=== PATIENT | female | born 1975 | race Caucasian/White ===

== ENCOUNTER 2018-09-13 19:49 | Inpatient (IN) | payer BC, OTHER ==
[~2018-09-13] VITALS: Ht 162.6 cm; Wt 48.1 kg
--- NOTE | 2018-09-14 01:40 | NUR ---
Pre-admission Met with a 43 year old female to assess for admission to [facility] for medically supervised withdrawal from ETOH. Pt arrived via transport from [facility] after flight from [place]. Pt is awake, alert, and oriented. Pt is clean, neat, anxious, tremulous, fearful, fidgety, and poor concentration. Pt vitals were rendered and BP noted as 163/107. Pt denies medical history. Pt meets criteria for admission. Pt made aware of rules and requirements for admission. Pt verbalizes understanding and agrees to the terms. Pt will be admitted to room 315. Will continue assessment when pt on unit.
[2018-09-14] MEDS ORDERED: LORA1TAB PO (02:09)
[2018-09-14] MEDS ORDERED: SERT25TA PO (02:09)
[2018-09-14] MEDS ORDERED: HYDROXYZINE PAMOATE 25 MG CAPSULE PO PRN (02:15)
[2018-09-14] MEDS ORDERED: THIAMINE HCL 200 MG/2 ML VIAL IM ONE (02:15)
[2018-09-14] MEDS ORDERED: LOPERAMIDE HCL 2 MG CAPSULE PO PRN ×2 (02:15)
[2018-09-14] MEDS ORDERED: ACETAMINOPHEN 325 MG TABLET PO PRN (02:15)
[2018-09-14] MEDS ORDERED: LORAZEPAM 1 MG TABLET PO PRN ×2 (02:15)
[2018-09-14] MEDS ORDERED: MAG HYDROX/AL HYDROX/SIMETH 30 ML LIQUID UDC PO PRN (02:15)
[2018-09-14] MEDS ORDERED: MAGNESIUM HYDROXIDE 30 ML LIQUID UDC PO PRN (02:15)
[2018-09-14] MEDS ORDERED: DICYCLOMINE HCL 20 MG TABLET PO PRN (02:15)
[2018-09-14] MEDS ORDERED: ONDANSETRON ODT 4 MG TAB.RAPDIS SL PRN (02:15)
[2018-09-14] MEDS ORDERED: LORAZEPAM 2 MG/1 ML VIAL IM PRN (02:15)
[2018-09-14] MEDS ORDERED: diphenhydrAMINE 50 MG CAPSULE PO PRN (02:15)
[2018-09-14] MEDS ORDERED: MIRALAX 17 GM POWD.PACK PO PRN (02:15)
[2018-09-14] MEDS ORDERED: ONDANSETRON 4 MG/2 ML VIAL IM PRN (02:15)
[2018-09-14 02:42] LABS: ALANINE AMINOTRANSFERASE 62 U/L (14-59); ALKALINE PHOSPHATASE 78 U/L (50-136); AMYLASE 72 U/L (25-115); ASPARTATE AMINOTRANSFERASE 72 U/L (15-37); BILIRUBIN,TOTAL 1.1 mg/dL (0.2-1.0); CARBON DIOXIDE 25 mmol/L (21-32); CHLORIDE 99 mmol/L (98-107); CREATININE 0.6 mg/dL (0.6-1.3); GLUCOSE 91 mg/dL (74-106); LIPASE 347 U/L (73-393); MAGNESIUM 1.7 mg/dL (1.8-2.4); POTASSIUM 3.3 mmol/L (3.5-5.1); TOTAL PROTEIN, SERUM 7.7 g/dL (6.4-8.2); UREA NITROGEN, BLOOD 12 mg/dL (7-18)
[2018-09-14 02:44] LABS: BASOPHILS % (AUTO) 1.2 % (0.0-2.0); EOSINOPHILS # (AUTO) 0.1 K/uL (0.0-0.7); EOSINOPHILS % (AUTO) 2.6 % (0.0-7.0); HEMOGLOBIN 13.8 g/dL (10.9-14.3); LYMPHOCYTES % (AUTO) 30.1 % (20.5-51.5); MEAN CORPUSCULAR HEMOGLOBIN 33.7 uug (24.7-32.8); MEAN CORPUSCULAR HGB CONC 35 g/dL (32.3-35.6); MEAN CORPUSCULAR VOLUME 95.3 fL (75.5-95.3); MONOCYTES # (AUTO) 0.5 K/uL (2.0-10.0); MONOCYTES % (AUTO) 15.7 % (0.0-11.0); NEUTROPHILS # (AUTO) 1.7 K/uL (1.8-8.9); NEUTROPHILS % (AUTO) 50.4 % (38.5-71.5); PLATELET COUNT (AUTO) 152 K/uL (179-408); RED BLOOD CELL COUNT(AUTO) 4.09 MIL/uL (3.63-4.92); WHITE BLOOD COUNT (AUTO) 3.3 K/uL (3.8-11.8)
[2018-09-14 02:46] LABS: ETHANOL < 3 MG/DL (0-0)
[2018-09-14] MEDS ORDERED: POTASSIUM CHLORIDE 20 MEQ TAB.PRT.SR PO ONE (03:00)
[2018-09-14] MEDS ORDERED: MAGNESIUM OXIDE 400 MG TABLET PO ONE (03:00)
--- NOTE | 2018-09-14 03:00 | NUR ---
Admission Note Received a 43 year old female patient to [facility] for medically supervised withdrawal from ETOH (Vodka). Pt was escorted to unit @ 0218 by female [employer]. Pt is awake, alert, oriented x 4, and ambulates with steady gait. Pt is anxious, tremulous, fearful, fidgety, and poor concentration. Pt states last consumption of ETOH was Sunday (09/11/18). Pt was cooperative with body and skin check noted to be intact. Pt is 52 and weighs 106 per standing scale. Pt was oriented to room, equipment, and unit. Verbalized understanding. Patient reports her substance use as: ETOH (Vodka): pt stated had first drinks at age 26 and drank socially. About 4 years ago her adoptive father passed s/p [place] and her left her within a 6 week period. Pt states her consumption increased to 750 ml nightly. Stated she used it to sleep. Last drink was 09/11/18. Pt denies any other substance use. Pt denies history of seizures, withdrawal induced delirium, or cardiac complications. However, pt reports new onset hypertension with ETOH withdrawal noted on 09/11/18. Denies suicidal ideation or attempts. Denies history of seizures or falls. Pt states she has had blackouts. Pt reports past medical history of anxiety and depression with prescribed Ativan and Zoloft. Pt has had one surgery (right knee) s/p ski injury in 2001. Pt states she and her 6 siblings are all adopted. Pt has a PCP (Fam Perez) and a therapist (Amber Alston) both located in [place]. Pt reports she has never attempted to get sober. States, I am getting to a point where Im going to start losing things. I need to learn how to be social. Pt states drinking escalated after father passed and left. Needed ETOH to cope and to sleep. Pt aware that triggers are friends drinking, special events, and inability to sleep. Pt motivated to participate in recovery and to learn about how to deal with issues. Vital signs rendered and noted as BP 163/107, HR 76, RR 16, T 98.2, and 100 % O2 Sat on RA. Breathing is even and unlabored, lungs clear, bowel sounds active x 4. Pt follows regular healthy diet. No known allergies. Full code. Denies history of smoking. Educated pt about plan of care including detox, group therapy, individual therapy, discharge planning and pt verbalizes understanding. Admission CIWA 15. All information relayed to MD and orders received. Labs ordered and rendered. Will continue to monitor pt. Addendum: 09/16/18 at 0708 by CHAVA HILL RN Clarification of Substance Use History: Patient had stated that she takes prescribed Ativan. However, she later clarified that she only took one dose. She did not continue taking it because she "didn't like it."
[2018-09-14 03:01] LABS: BASOPHILS % (MANUAL) 1 % (0-2); EOSINOPHILS % (MANUAL) 3 % (0-8); LYMPHOCYTES % (MANUAL) 30 % (20-40); MONOCYTES % (MANUAL) 15 % (2-10); NEUTROPHILS % (MANUAL) 51 % (42-75)
[2018-09-14 04:00] VITALS: BP 166/102
--- NOTE | 2018-09-14 04:00 | NUR ---
CIWA 14 Pt anxious, agitated, tremors, difficulty sitting still, fearful
[2018-09-14] MEDS: CLONIDINE HCL 0.1 MG TABLET PO PRN (04:04)
--- NOTE | 2018-09-14 04:04 | NUR ---
PRN Benadryl,Vistaril, Clonidine, Ativan Pt with anxiety, agitation, restless, unable to sleep, elevated BP 166/102. PRN medications given per order. Will monitor effect.
--- NOTE | 2018-09-14 05:04 | NUR ---
Reassess PRN Benadryl, Vistaril, Clonidine, Ativan Medication effective. Pt in bed with eyes closed and resting. Respirations even and unlabored. Refused BP recheck. Will continue to monitor.
[2018-09-14 06:00] LABS: *AMPHETAMINE, URINE NEGATIVE (NEGATIVE); *BARBITURATE, URINE NEGATIVE (NEGATIVE); *CANNABINOID, URINE NEGATIVE (NEGATIVE); *COCCAINE, URINE NEGATIVE (NEGATIVE); *OPIATE, URINE NEGATIVE (NEGATIVE); *PHENCYCLIDINE SCREEN,URINE NEGATIVE (NEGATIVE)
[2018-09-14 06:14] LABS: THYROID STIMULATING HORMONE 6.272 mIU/mL (0.358-3.740)
[2018-09-14 06:21] LABS: *URINE HCG, QUAL NEGATIVE (NEGATIVE)
--- NOTE | 2018-09-14 07:04 | NUR ---
End of Shift Endorsing 43 year old female admitted 09/14/18 to [facility] for medically supervised withdrawal from ETOH. 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 Last CIWA 15 @ 0400. Pt received Potassium and Magnesium PO related to low values. Pt resting in bed with eyes closed. Bed low, side rails up x 2, and call mehta in reach.
--- NOTE | 2018-09-14 07:15 | NUR ---
Start of Shift note Pt. is a 43 y/o female admitted for the medically managed withdrawal from ETOH. Pt. was placed on PRN medication and is awaiting further assessment by MD. Endorsed from previous shift pt. presented with anxiety, agitation, and nausea. Received pt. in room. Pt. laying in bed with eyes closed. No signs of distress noted. Safety measures in place. Will continue to monitor pt.s behavior for safety.
[2018-09-14 08:00] VITALS: BP 113/81
--- NOTE | 2018-09-14 08:00 | NUR ---
CIWA Assessment CIWA of 11 at this time. Pt. in room and presents with anxiety, tremors, diaphoresis, and a flat affect. Will give medications as ordered. Will continue to monitor pt.'s behavior for safety.
[2018-09-14] MEDS: FOLIC ACID 1 MG TABLET PO SCH (09:55)
[2018-09-14] MEDS: MULTIVITAMINS,THERAPEUTIC TABLET PO SCH (09:55)
[2018-09-14] MEDS: THIAMINE HCL 100 MG TABLET PO SCH (09:55)
[2018-09-14] MEDS ORDERED: 5 DAY PHENOBARBITAL TAPER -SERENITY PROTOCOL PO PRN (10:15)
[2018-09-14 12:00] VITALS: BP 134/90
--- NOTE | 2018-09-14 12:00 | NUR ---
CIWA Assessment CIWA of 11 at this time. Pt. in room and presents with anxiety, tremors, diaphoresis, and a flat affect. Pt. compliant with medication regiment and treatment plan. Will continue to monitor pt.'s behavior for safety.
[2018-09-14] MEDS: PHENOBARBITAL 60 MG TABLET PO SCH ×2 (12:05→21:45)
[2018-09-14 16:00] VITALS: BP 137/98
--- NOTE | 2018-09-14 19:03 | NUR ---
End Of Shift Pt. is a 43 y/o female admitted for the medically managed withdrawal from ETOH. Pt. was placed on a Phenobarbital taper to manage her withdrawal symptoms. Throughout shift pt. presented with anxiety, tremors, and agitation. Pt. compliant with treatment plan and medication regiment. Safety measures in place. Will endorse pt.s care to oncoming shift.
--- NOTE | 2018-09-14 19:30 | NUR ---
Start of Shift Received 43 year old female patient admitted 09/14/18 to [facility] for medically supervised withdrawal from ETOH. Pt started on a 5 day Phenobarbital taper today 09/14/18 which she is tolerating well. Last CIWA 10 @1600. Pt did not receive any PRN medications during day shift. Pt anxious, flat affect, preoccupied and easily distracted. Pt up ad tali with steady gait and participating in activities. Pt had questions about groups, questions answered and given a schedule of activities. Bed low, padded side rails up x 2, call mehta in reach. Will continue to monitor.
--- NOTE | 2018-09-14 20:00 | NUR ---
CIWA 10 Pt anxious, agitated, and restless.
[2018-09-14 20:05] VITALS: BP 123/90
[2018-09-14] MEDS: TRAZODONE 50 MG TABLET PO PRN (21:45)
--- NOTE | 2018-09-14 21:45 | NUR ---
PRN Trazodone Pt requested something to help her sleep. PRN Trazodone given per order. Will monitor effect.
--- NOTE | 2018-09-14 22:45 | NUR ---
Reassess PRN Trazodone Medication effective. Pt resting with eyes closed. Respirations even and unlabored.
--- NOTE | 2018-09-15 | NUR ---
CIWA deferred/Vitals refused Pt is resting with eyes closed. Respirations even and unlabored. CIWA deferred and pt refused vitals. Will continue to monitor.
--- NOTE | 2018-09-15 04:04 | NUR ---
CIWA deferred/Vitals refused Pt is resting with eyes closed. Respirations even and unlabored. CIWA deferred and pt refused vitals. Will continue to monitor.
--- NOTE | 2018-09-15 06:50 | NUR ---
End of Shift Endorsing 43 year old female patient admitted 09/14/18 to [facility] for medically supervised withdrawal from ETOH. Pt currently on day 2 of a 5 day Phenobarbital taper which she is tolerating well. Last CIWA 10 @1999. 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 PO intake 950 ml, voided x 3, BM x 0, and slept 9 hours. Bed low, padded side rails up x 2, call mehta in reach.
--- NOTE | 2018-09-15 07:30 | NUR ---
START OF SHIFT Endorse rcvd from ongoing nurse, client is in room, lying on her L side, she sounds asleep, easy to arouse. RR 16, even, non-labored. Last CIWA 10 @ 1999. Client is schedule to start 5 day Phenobarbital taper this am. PRN Trazodone 50mg PO for insomnia, client slept 9 hrs. Side rails x 2 up/padded. Seizure precautions. Call light within reach. Will continue to monitor.
[2018-09-15 07:44] LABS: BASOPHILS % (AUTO) 0.8 % (0.0-2.0); EOSINOPHILS # (AUTO) 0.2 K/uL (0.0-0.7); HEMATOCRIT 38.3 % (31.2-41.9); HEMOGLOBIN 13.2 g/dL (10.9-14.3); LYMPHOCYTES # (AUTO) 1.2 K/uL (20.0-40.0); MEAN CORPUSCULAR HEMOGLOBIN 33.6 uug (24.7-32.8); MEAN CORPUSCULAR HGB CONC 34 g/dL (32.3-35.6); MEAN CORPUSCULAR VOLUME 97.6 fL (75.5-95.3); MONOCYTES # (AUTO) 0.5 K/uL (2.0-10.0); MONOCYTES % (AUTO) 15.7 % (0.0-11.0); NEUTROPHILS # (AUTO) 1.4 K/uL (1.8-8.9); NEUTROPHILS % (AUTO) 41.5 % (38.5-71.5); PLATELET COUNT (AUTO) 146 K/uL (179-408); RED BLOOD CELL COUNT(AUTO) 3.92 MIL/uL (3.63-4.92); WHITE BLOOD COUNT (AUTO) 3.3 K/uL (3.8-11.8)
[2018-09-15 08:01] LABS: CREATININE 0.7 mg/dL (0.6-1.3); MAGNESIUM 1.7 mg/dL (1.8-2.4)
[2018-09-15 08:11] LABS: THYROID STIMULATING HORMONE 1.948 mIU/mL (0.358-3.740)
[2018-09-15 08:32] LABS: EOSINOPHILS % (MANUAL) 4 % (0-8); LYMPHOCYTES % (MANUAL) 37 % (20-40); MONOCYTES % (MANUAL) 15 % (2-10)
[2018-09-15 08:33] LABS: NEUTROPHILS % (MANUAL) 44 % (42-75)
[2018-09-15 08:51] VITALS: BP 120/77
[2018-09-15] MEDS ORDERED: MAGNESIUM OXIDE 400 MG TABLET PO ONE (09:00)
[2018-09-15] MEDS ORDERED: TUBERCULIN,PURIF.PROT.DERIV. 5 TU/0.1 ML TEST ID ONE (09:00)
[2018-09-15] MEDS: MULTIVITAMINS,THERAPEUTIC TABLET PO SCH (09:01)
[2018-09-15] MEDS: SERTRALINE HCL 50 MG TABLET PO SCH (09:02)
[2018-09-15] MEDS: FOLIC ACID 1 MG TABLET PO SCH (09:02)
[2018-09-15] MEDS: THIAMINE HCL 100 MG TABLET PO SCH (09:02)
[2018-09-15] MEDS: PHENOBARBITAL 60 MG TABLET PO SCH ×4 (09:02→21:48)
[2018-09-15] MEDS: IBUPROFEN 600 MG TABLET PO PRN ×2 (09:07→17:20)
--- NOTE | 2018-09-15 09:07 | NUR ---
CIWA 17 & Motrin 600mg PO fo pain 6/ d/t menstrual cramps. Client is in room, she presents with emotional volatility, red teary eyes, avoidant gaze, flushed facial skin, clammy skin, startles easily, anxious mood, agitation, and difficulty concentrating. Client reports nausea, menstrual cramps, anxiety, irritability, headache, and tremors. Schedule Phenobarbital 30mg PO and PRN administered. Encourage client to attend group therapy to learn skills to maintain sober. Call light within reach.
--- NOTE | 2018-09-15 10:07 | NUR ---
Reassess Motrin 600mg, client reports slight relief from menstrual cramps 3/10, but tolerable.
[2018-09-15 10:11] LABS: HEPATITIS B SURFACE AG Negative (Negative)
[2018-09-15 12:00] VITALS: BP 136/88
--- NOTE | 2018-09-15 12:14 | NUR ---
CIWA 15 Client presents with restlessness, nausea, clammy skin, sweats, flushed facial skin, tremors, anxiety, irritability, emotional volatility, depressed, anhedonia, and fatigue. Schedule Phenobarbital 30mg PO administered. Call light within reach.
--- NOTE | 2018-09-15 12:38 | NUR ---
Therapist prompted client to attend group therapy sessions.
[2018-09-15 16:55] VITALS: BP 133/94
[2018-09-15] MEDS: BENZOCAINE ORAL CARE 12 ML BOTTLE MM PRN (17:20)
--- NOTE | 2018-09-15 17:20 | NUR ---
CIWA 17 & PRN Motrin 600mg for menstrual pain, Anbesol 1ml MM for dental pain to LUQ. Client presents with flushed facial skin, tremors, anxiety, irritability, and emotional volatility. Client reports feeling depressed, menstrual pain, muscle aches, restlessness, nausea, clammy skin, sweats, and fatigue. Schedule Phenobarbital 30mg PO and above PRN meds administered. Call light within reach.
--- NOTE | 2018-09-15 18:20 | NUR ---
Reassess PRN Motrin 600mg & Anbesol 1ml, client reports relief from menstrual pain and dental pain to LUQ.
--- NOTE | 2018-09-15 19:10 | NUR ---
END OF SHIFT Endorse client to incoming nurse, client is in room, a/o x 4, client continues to present with flushed facial skin, tremors, anxiety, irritability, and emotional volatility, depression, restlessness, nausea, clammy skin, and fatigue. Last CIWA 14 @ 1720. Client is on first of 5 day Phenobarbital taper. PRN Motrin 600mg PO x 2 for menstrual pain, and Anbesol 1ml MM for dental pain on RUQ, noted effective. Client is compliant with 1/3 of group therapy. Consumes 50% of meals. Adequate PO fluid intake 1196mL, void x 4, stool x 1. Call light within reach.
--- NOTE | 2018-09-15 19:30 | NUR ---
Start of Shift Received 43 year old female patient admitted 09/14/18 to [facility] for medically supervised withdrawal from ETOH. Pt is currently on day 2 of a 5 day Phenobarbital taper which she is tolerating well. Last CIWA 14@ 1600. Pt received PRN Motrin x 2 on day shift. Pt awake, alert and oriented. Pt is anxious, agitated, depressed, epresses that todays group was very emotional. Bed is low, side rails up x 2, and call mehta is in reach. Will continue to monitor.
[2018-09-15 20:00] VITALS: BP 144/100
--- NOTE | 2018-09-15 20:00 | NUR ---
CIWA 14 Pt is anxious, agitated, depressed, tearful
[2018-09-15] MEDS: CLONIDINE HCL 0.1 MG TABLET PO PRN (21:50)
--- NOTE | 2018-09-15 21:50 | NUR ---
PRN Clonidine Pt anxious and BP 144/100. Clonidine given per order. Will monitor effect.
--- NOTE | 2018-09-15 22:50 | NUR ---
Reassess PRN Clonidine Medication effective. Decreased anxiety and BP 140/92. Will continue to monitor.
[2018-09-15] MEDS: TRAZODONE 50 MG TABLET PO PRN (23:59)
--- NOTE | 2018-09-15 23:59 | NUR ---
PRN Trazodone Pt requesting medication for sleep. PRN Trazodone given per order. Will monitor effect.
[2018-09-16] VITALS: BP 139/90
--- NOTE | 2018-09-16 | NUR ---
CIWA 10 Pt is anxious, agitated, and restless
--- NOTE | 2018-09-16 00:59 | NUR ---
Reassess PRN Trazodone Medication effective. Pt resting with eyes closed. Respirations are even and unlabored. Continue to monitor.
--- NOTE | 2018-09-16 04:00 | NUR ---
CIWA deferred/Vitals refused Pt resting with eyes closed. Respirations are even and unlabored. CIWA deferred and pt refused vitals. Continue to monitor.
--- NOTE | 2018-09-16 07:08 | NUR ---
End of Shift Endorsing 43 year old female patient admitted 09/14/18 to [facility] for medically supervised withdrawal from ETOH. Pt is currently on day 4 of a 5 day Phenobarbital taper which she is tolerating well. Last CIWA 10 @0000. 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 PO intake 1500 ml, voided x 4, BM x1, and slept 6 hours. Bed is low, side rails up x 2, and call mehta is in reach.
[2018-09-16 08:00] VITALS: BP 104/62
--- NOTE | 2018-09-16 08:05 | NUR ---
START OF SHIFT NOTE Received report from night nurse, 43 year old female admitted for ETOH withdrawal. Patient continues with 5 days Phenobarbital taper tolerating well. Per endorsement received PRN Trazodone, Clonidine effective per night nurse, Last CIWA-, slept for 6 hours. Received patient alert awake oriented x4 anxious, agitated, bilateral hand tremors, sweats. Skin intact warm and dry to touch. Educated patient current plan of the day and medication regimen, patient verbalized understanding. All safety measures in place. Will cont with plan of care.
[2018-09-16] MEDS: MULTIVITAMINS,THERAPEUTIC TABLET PO SCH (08:45)
[2018-09-16] MEDS: FOLIC ACID 1 MG TABLET PO SCH (08:45)
[2018-09-16] MEDS: THIAMINE HCL 100 MG TABLET PO SCH (08:45)
[2018-09-16] MEDS: SERTRALINE HCL 50 MG TABLET PO SCH (08:45)
[2018-09-16] MEDS: PHENOBARBITAL 60 MG TABLET PO SCH ×3 (08:47→21:45)
[2018-09-16] MEDS: IBUPROFEN 600 MG TABLET PO PRN (08:51)
--- NOTE | 2018-09-16 08:51 | NUR ---
CIWA ASSESSMENT CIWA score noted 11, patient presented flat facial expression, anhedonia, body aches 5/10, anxiety, agitation, restless, sweats, light headed. Patient was given schedule medication and PRN Motrin 600mg PO for pain as ordered. Will cont to monitor and reassess the patient.
--- NOTE | 2018-09-16 09:51 | NUR ---
MOTRIN REASSESSMENT Patient reported body aches lower to 2/10, Motrin was effective.
--- NOTE | 2018-09-16 10:03 | NUR ---
Therapist prompted client to attend all group therapy sessions.
[2018-09-16 10:08] LABS: TRIIODOTHYRONINE, FREE 3.3 pg/mL (2.0-4.4)
[2018-09-16 12:00] VITALS: BP 130/87
--- NOTE | 2018-09-16 12:00 | NUR ---
CIWA ASSESSMENT CIWA score noted 13, Patient continues to exhibited s/s of withdrawal such as increased sweats, anxiety, agitation, restless, bilateral hand tremors. Encourage patient to use distraction such as reading books, watching TV, interacting with peers. Patient is due for schedule medications. Will cont to monitor.
[2018-09-16 14:23] LABS: BASOPHILS % (AUTO) 0.7 % (0.0-2.0); EOSINOPHILS # (AUTO) 0.1 K/uL (0.0-0.7); EOSINOPHILS % (AUTO) 2.6 % (0.0-7.0); HEMATOCRIT 35.6 % (31.2-41.9); HEMOGLOBIN 12.3 g/dL (10.9-14.3); LYMPHOCYTES % (AUTO) 26.7 % (20.5-51.5); MEAN CORPUSCULAR HEMOGLOBIN 33.8 uug (24.7-32.8); MEAN CORPUSCULAR HGB CONC 35 g/dL (32.3-35.6); MEAN CORPUSCULAR VOLUME 97.4 fL (75.5-95.3); MONOCYTES # (AUTO) 0.6 K/uL (2.0-10.0); MONOCYTES % (AUTO) 15.6 % (0.0-11.0); NEUTROPHILS % (AUTO) 54.4 % (38.5-71.5); PLATELET COUNT (AUTO) 148 K/uL (179-408); RED BLOOD CELL COUNT(AUTO) 3.65 MIL/uL (3.63-4.92); WHITE BLOOD COUNT (AUTO) 3.7 K/uL (3.8-11.8)
[2018-09-16 14:41] LABS: BILIRUBIN,DIRECT 0.1 mg/dL (0.0-0.2); BILIRUBIN,TOTAL 0.5 mg/dL (0.2-1.0); MAGNESIUM 1.7 mg/dL (1.8-2.4); POTASSIUM 4.8 mmol/L (3.5-5.1); TOTAL PROTEIN, SERUM 6.9 g/dL (6.4-8.2)
[2018-09-16] MEDS ORDERED: MAGNESIUM OXIDE 400 MG TABLET PO ONE (15:00)
[2018-09-16 15:15] LABS: EOSINOPHILS % (MANUAL) 1 % (0-8); LYMPHOCYTES % (MANUAL) 22 % (20-40); MONOCYTES % (MANUAL) 10 % (2-10); NEUTROPHILS % (MANUAL) 67 % (42-75)
[2018-09-16 16:00] VITALS: BP 126/86
--- NOTE | 2018-09-16 19:04 | NUR ---
END OF SHIFT NOTE Gave report to night nurse, patient admitted for ETOH withdrawal and continues with Phenobarbital taper tolerating well. Patient presented with sad facial expression, anxiety, agitation, restless, fatigue, body aches. patient was given her schedule mediations along with PRN Motrin for body aches noted to be effective. Patient noted attending groups activities. Patient noted with low magnesium level 1.7, which was replaced it with 800mg mag-ox as ordered patient tolerated well. last CIWA score 12. Encourage PO fluids as tolerated. Vital signs WNL. Patient denies any SI/HI. All needs attended. Endorse care to night nurse.
--- NOTE | 2018-09-16 19:30 | NUR ---
START OF SHIFT Pt is a 43 year old female admitted for ETOH withdrawal. Patient continues with 5 days Phenobarbital taper tolerating well. Per endorsement Pt received PRN Motrin per day shift nurse and was effective.Last CIWA 12. Pt received in room, A/A/O x 4,appeared anxious, somewhat agitated, c/o having intermittent bilateral hand tremors and sweats. Encouraged to verbalize needs and concerns. Emotional support provided. All safety measures are in place .Call light is within reach. Will continue to monitor for safety.
[2018-09-16 20:00] VITALS: BP 147/92
[2018-09-16] MEDS: CLONIDINE HCL 0.1 MG TABLET PO PRN (23:09)
--- NOTE | 2018-09-16 23:10 | NUR ---
PRN CLONIDINE 0.1 MG PO GIVEN FOR ANXIETY/DIAPHORESIS.WILL MONITOR FOR EFFECTIVENESS.B/P = 133/94,PC=995.
--- NOTE | 2018-09-17 | NUR ---
CIWA deferred/Vitals refused/PRN reassessment Pt is resting in bed with eyes closed. Respirations are even and unlabored. CIWA deferred d/t pt being asleep, v/s refused;no s/s of anxiety noted,will continue to monitor.
--- NOTE | 2018-09-17 04:00 | NUR ---
CIWA deferred/Vitals refused Pt is resting in bed with eyes closed. Respirations are even and unlabored. CIWA deferred d/t pt being asleep, v/s refused;no s/s of distress noted,will continue to monitor.
--- NOTE | 2018-09-17 06:53 | NUR ---
END OF SHIFT Pt is a 43 year old female admitted for ETOH withdrawal. Patient continues with Phenobarbital taper and is tolerating well. Per endorsement Pt received PRN Clonidine last night and was effective.Last CIWA- 9. Pt is A/O x 4,no c/o pain noted. Encouraged to verbalize needs and concerns. Emotional support provided. Pt slept 6 hours,fluid intake was 1500 ml, voided x 2.All safety measures are in place .Call light is within reach. Will continue to monitor for safety.
--- NOTE | 2018-09-17 07:30 | NUR ---
START OF SHIFT Endorse rcvd from ongoing nurse, client is in room, in a position, she sounds asleep, easy to arouse. RR 16, even, non-labored. Last CIWA 6 @ 1999. Client is on third of 5 day Phenobarbital taper. PRN Clonidine 0.1mg PO for anxiety and agitation. Client slept 9 hrs. Side rails x 2 up/padded. Seizure precautions. Call light within reach. Will continue to monitor.
[2018-09-17 08:00] VITALS: BP 110/67
[2018-09-17] MEDS: THIAMINE HCL 100 MG TABLET PO SCH (08:07)
[2018-09-17] MEDS: SERTRALINE HCL 50 MG TABLET PO SCH (08:07)
[2018-09-17] MEDS: MULTIVITAMINS,THERAPEUTIC TABLET PO SCH (08:07)
[2018-09-17] MEDS: PHENOBARBITAL 60 MG TABLET PO SCH ×2 (08:07→21:04)
[2018-09-17] MEDS: FOLIC ACID 1 MG TABLET PO SCH (08:07)
--- NOTE | 2018-09-17 08:07 | NUR ---
CIWA 13 & PRN Anbesol 1mL MM to mouth LUQ. Client is in room. she is a/o x 4, she presents with anxious mood, flat affect, fine trors, clammy skin, flushed facial skin, avoidant gaze, and difficulty concentrating. Client reports cold/ chills, feverish at times, tremors, sweats and anxiety. Phenobarbital 30mg PO administered.
[2018-09-17] MEDS: BENZOCAINE ORAL CARE 12 ML BOTTLE MM PRN (08:08)
[2018-09-17 08:33] LABS: BILIRUBIN,DIRECT 0.1 mg/dL (0.0-0.2); BILIRUBIN,TOTAL 0.4 mg/dL (0.2-1.0); TOTAL PROTEIN, SERUM 6.7 g/dL (6.4-8.2)
[2018-09-17] MEDS ORDERED: TUBERCULIN,PURIF.PROT.DERIV. 5 TU/0.1 ML TEST ID ONE (09:00)
--- NOTE | 2018-09-17 09:07 | NUR ---
Reassess PRN Anbesol 1mL MM to mouth LUQ, client reports relief from pain and discomfort, she stated, "I was able to eat some of my food."
[2018-09-17 12:55] VITALS: BP 129/80
--- NOTE | 2018-09-17 13:00 | NUR ---
[facility] 12 Client reports abdominal cramps, agitation, anhedonia, anxiety, poor appetite, chills/colds, clammy skin, depression, fine tremors, flushed facial skin, restless legs, and fatigue. Non-pharmacological measures rendered. Call light within reach.
--- NOTE | 2018-09-17 16:41 | NUR ---
Therapist prompted client to attend group therapy.
[2018-09-17 16:55] VITALS: BP 138/96
--- NOTE | 2018-09-17 17:00 | NUR ---
CIWA 11 Client reports nausea, clammy skin, sweats, flushed facial skin, tremors, anxiety, irritability, emotional volatility, depression, anhedonia, and fatigue. Non-pharmacological measures. Call light within reach.
--- NOTE | 2018-09-17 19:23 | NUR ---
END OF SHIFT Endorse client to incoming nurse, client is in room, a/o x 4, client reports nausea, clammy skin, sweats, flushed facial skin, tremors, anxiety, irritability, emotional volatility, depression, anhedonia, and fatigue. Last CIWA 11 @ 1700. Client is on thirsd of 5 day Phenobarbital taper. PRN Anbesol 1ml MM for dental pain on LUQ, noted effective. Client is compliant with group therapy. Consumes 50% of meals. Adequate PO fluid intake mL, void x 4, stool x 1. Side rails x 2 up/padded. Seizure precautions. Call light within reach.
--- NOTE | 2018-09-17 19:30 | NUR ---
START OF SHIFT Received 43 year old female patient admitted on 09/14/18 for ETOH withdrawal. Pt is alert and oriented x4. Pt is noted to be anxious, restless, with flushed face. Pt is currently on day 3/5 of her Phenobarbital taper and is tolerating well. Per endorsement, she received PRN Anbesol. Last CIWA:11 at 1600. Breathing is even and unlabored, safety measures in place. Will continue to monitor.
[2018-09-17 20:00] VITALS: BP 144/98
--- NOTE | 2018-09-17 20:00 | NUR ---
CIWA Pt is noted to be anxious, restless, with flushed face. CIWA:9 prior to 2100 medication administration. Will continue to monitor.
[2018-09-17] MEDS: TRAZODONE 50 MG TABLET PO PRN (22:40)
--- NOTE | 2018-09-17 22:40 | NUR ---
PRN TRAZODONE Pt complains of restless sleep and difficulty falling asleep. PRN Trazodone administered as ordered. Safety measures in place. Will monitor effectiveness.
--- NOTE | 2018-09-17 23:40 | NUR ---
CIWA Pt noted to be anxious,restless with flushed face and racing thoughts. CIWA: 8. Will monitor.
--- NOTE | 2018-09-17 23:40 | NUR ---
PRN TRAZODONE REASSESSMENT PRN medication ineffective. Pt appears drowsy, reports she will sleep soon. Breathing even and unlabored, safety measures in place. Will monitor.
[2018-09-17 23:45] VITALS: BP 134/92
--- NOTE | 2018-09-18 04:00 | NUR ---
VITALS REFUSED, CIWA DEFERRED 0400 vitals refused. CIWA deferred d/t pt lying in bed with eyes closed and is noted to be asleep. Breathing is even and unlabored, safety measures in place. Will monitor.
--- NOTE | 2018-09-18 07:00 | NUR ---
END OF SHIFT Pt is a 43 year old female patient admitted on 09/14/18 for ETOH withdrawal. She remains alert and oriented x4. Pt was noted to be anxious, restless, with flushed face during the shift. She is currently on day 4/5 of her Phenobarbital taper and is tolerating well. At 2240 she received PRN Toradol. She slept a total of 5 hrs, Intake: 1,200mL, Void: x2, BM:0, Last CIWA:8 at 2340. Breathing is even and unlabored, safety measures in place. Endorsed to AM shift.
--- NOTE | 2018-09-18 07:40 | NUR ---
START OF SHIFT NOTE Received report from night nurse, 43 year old female admitted for ETOH withdrawal. Patient continues with 5 days Phenobarbital taper tolerating well. Per endorsement received PRN Trazodone effective per night nurse, Last CIWA-, slept for 5 hours. Received patient alert awake oriented x4 anxious, agitated, bilateral hand tremors, sweats, fatigue. Skin intact warm and dry to touch. Educated patient current plan of the day and medication regimen, patient verbalized understanding. All safety measures in place. Will cont with plan of care.
[2018-09-18 08:00] VITALS: BP 115/73
[2018-09-18] MEDS: SERTRALINE HCL 50 MG TABLET PO SCH (08:10)
[2018-09-18] MEDS: FOLIC ACID 1 MG TABLET PO SCH (08:10)
[2018-09-18] MEDS: MULTIVITAMINS,THERAPEUTIC TABLET PO SCH (08:10)
[2018-09-18] MEDS: THIAMINE HCL 100 MG TABLET PO SCH (08:10)
--- NOTE | 2018-09-18 08:11 | NUR ---
CIWA ASSESSMENT CIWA score noted 8, patient presented with anhedonia, anxiety, agitation, restless, sweats. Patient was given schedule medication as ordered. Will cont to monitor.
[2018-09-18] MEDS ORDERED: PHENOBARBITAL 60 MG TABLET PO SCH (09:00)
[2018-09-18 12:00] VITALS: BP 142/90
--- NOTE | 2018-09-18 12:00 | NUR ---
CIWA ASSESSMENT CIWA score noted-7, patient reported feeling less anxious, agitated, mild bilateral hand tremors and sweats. Will cont to monitor.
--- NOTE | 2018-09-18 12:49 | NUR ---
Therapist prompted client to attend group therapy sessions.
[2018-09-18] MEDS ORDERED: SERT25TA PO (13:43)
[2018-09-18] MEDS ORDERED: CLON0.1T14 PO (13:43)
[2018-09-18] MEDS ORDERED: HYDR-3895 PO (13:43)
[2018-09-18] MEDS ORDERED: TRAZ-213 PO (13:43)
[2018-09-18 16:00] VITALS: BP 144/93
--- NOTE | 2018-09-18 19:10 | NUR ---
END OF SHIFT NOTE Gave report to night nurse, 43 year old female admitted for ETOH withdrawal and completed her 4 days Valium taper tolerated well. Patient presented with flat affect, anxious, agitated, restless, fatigue. Patient was given her schedule mediations and did not require any PRN'S. Patient noted attending groups and activities interacting with peers. Patient set for discharge in AM. Last CIWA score 5. All safety measures in place, call light within reach. Endorse patient to night nurse in stable condition. Addendum: 09/18/18 at 1916 by TALAT DENNIS LVN CORRECTION- Patient completed her 5 days phenobarbital taper tolerated well.
--- NOTE | 2018-09-18 19:12 | NUR ---
Start of shift note Received report from day shift nurse. Pt is a 43 yo female, A+ox4, presenting to [facility] for medically supervised ETOH withdrawal. Pt noted with restlessness, agitation, and anxiety. Pt has HX of anxiety and depression which will be monitored during shift. Pt has completed 5 day Phenobarbital taper, tolerated well, and is due for discharge tomorrow. Respirations even and unlabored. Will continue to monitor.
[2018-09-18 20:11] VITALS: BP 134/86
--- NOTE | 2018-09-18 20:11 | NUR ---
CIWA Assessment CIWA: 6. Pt noted with fine tremors, sweat on brow, anxiety, and agitation. Respirations even and unlabored. Will continue to monitor.
--- NOTE | 2018-09-18 23:41 | NUR ---
PRN Trazodone Pt c/o inability to sleep and requested for PRN Trazodone. Medication given and tolerated well. Will reassess within 1 HR. Will continue to monitor.
[2018-09-18] MEDS: TRAZODONE 50 MG TABLET PO PRN (23:42)
--- NOTE | 2018-09-19 00:40 | NUR ---
PRN Trazodone Reassessment Medication effective. Pt is resting well in bed. No s/s of ASE noted at this time. Respirations even and unlabored. Will continue to monitor.
--- NOTE | 2018-09-19 00:55 | NUR ---
V/S refused and CIWA Assessment deferred for sleep. Respirations even and unlabored. Will continue to monitor.
--- NOTE | 2018-09-19 04:25 | NUR ---
V/S refused and CIWA Assessment deferred for sleep. Respirations even and unlabored. Will continue to monitor.
--- NOTE | 2018-09-19 07:00 | NUR ---
End of shift note Pt was continuously noted with anxiety, agitation, and restlessness. Pt remained in room for majority of shift except to get food from kitchen, to go smoke on smoking patio, and to interact with other patients in hallways. Pt remained cooperative and compliant with all aspects of treatment. Pt was given PRN Trazodone @2342. Pt has completed 5 day Phenobarbital taper, tolerated well, and is due for discharge today. Pt slept for a total of 6 HRS. Last CIWA: 6 @2010. Respirations even and unlabored. Will endorse to day shift nurse.
[2018-09-19 08:00] VITALS: BP 100/67
--- NOTE | 2018-09-19 08:00 | NUR ---
START OF SHIFT CIWA ASSESSMENT Pt 43 y/o female admitted for etoh withdrawal. Pt received in room on bed with eyes closed resting, but easily arousable to name. Pt alert and oriented to name, place, and time. Perrla. Skin warm and moist to touch. Respirations even and unlabored. Appears disheveled. Clothes and empty drink bottles scattered throughout the room. Encouraged to maintain hygiene. Anxious and restless. Pressured speech noted. Irritable. Ciwa=6 @0800. It was reported that pt slept for 6 hours last night. Last ciwa=6 @ 1999. Pt completed a 5 day valium taper. Pt is scheduled to be discharged today. Bed on lowest position with side rails x2 up for safety. Call light within reach.
[2018-09-19] MEDS: FOLIC ACID 1 MG TABLET PO SCH (08:25)
[2018-09-19] MEDS: SERTRALINE HCL 50 MG TABLET PO SCH (08:25)
[2018-09-19] MEDS: THIAMINE HCL 100 MG TABLET PO SCH (08:25)
[2018-09-19] MEDS: MULTIVITAMINS,THERAPEUTIC TABLET PO SCH (08:25)
--- NOTE | 2018-09-19 09:35 | NUR ---
DISCHARGE Pt 43 y/o female admitted for etoh withdrawal. Pt alert and oriented to name, place, and time. Perrla. Skin warm and moist to touch. Respirations even and unlabored. Bilateral hand tremors noted. Pt denies any SI/HI. No belongings in cabinet or cassette noted. Prescriptions, TB results, home mediations, and discharge papers packed in pt bag. No distress noted. VS wnl. Pt discharged to [facility] via private transport.
== END 2018-09-19 09:34 | disposition other institution (70) | DRG 895 ==
LOC: SRC 09-14 00:59
PROVIDERS: ADMIT Internal Medicine; ATTEND Internal Medicine
PROC: HZ41ZZZ Group Counseling for Substance Abuse Treatment, Behavioral (ICD-10-PCS; principal; 2018-09-14)
PROC: HZ2ZZZZ Detoxification Services for Substance Abuse Treatment (ICD-10-PCS; principal; 2018-09-14)
PROC: HZ31ZZZ Individual Counseling for Substance Abuse Treatment, Behavioral (ICD-10-PCS; 2018-09-16)
DX: F10.230 Alcohol dependence with withdrawal, uncomplicated (principal); E87.1 Hypo-osmolality and hyponatremia; Y90.0 Blood alcohol level of less than 20 mg/100 ml; F41.1 Generalized anxiety disorder; Z86.61 Personal history of infections of the central nervous system; D69.6 Thrombocytopenia, unspecified; E83.42 Hypomagnesemia; E87.6 Hypokalemia; F41.9 Anxiety disorder, unspecified; N20.0 Calculus of kidney; K12.1 Other forms of stomatitis; D72.819 Decreased white blood cell count, unspecified; I10 Essential (primary) hypertension; R94.5 Abnormal results of liver function studies; R74.0 Nonspecific elevation of levels of transaminase and lactic acid dehydrogenase [LDH]
CPT/HCPCS: 36415; 70030-TC; 80307; 83690; 83735; 84443; 84480; 84481; 84703; 85025; 86580; 86592; 86705; 86803; 87340; 87806; A9150; G0480; J8499; Q0163